=== PATIENT | male | born 1995 | race Caucasian/White ===

== ENCOUNTER → 2021-06-27 12:17 | Outpatient (CLI) | payer OTHER, MEDICAID, SELFPAY ==
[2021-06-27 18:41] LABS: Add Manual Diff / Slide Review NO; Basophils Absolute Auto 100 /uL (0-100); Basophils Percent Auto 0.5 % (0-2); Eosinophils Absolute Auto 600 /uL (0-450); Eosinophils Percent Auto 3.9 % (2-4); Hematocrit 41.6 % (41-53); Hemoglobin 13.8 g/dL (13.5-17.5); Lymphocytes Absolute Auto 2900 /uL (1100-4500); Lymphocytes Percent Auto 18.2 % (25-40); Mean Corpuscular HGB Conc 33.3 % (30-36); Mean Corpuscular Volume 87.1 fL (80-100); Monocytes Absolute Auto 1000 /uL (0-900); Neutrophils Absolute Auto 11600 /uL (1500-7000); Neutrophils Percent Auto 71.4 % (50-75); Platelet Count 348 X10^3/uL (150-400); Red Blood Cell Count 4.77 X10^6/uL (4.5-5.9); Red Cell Distribution Width 13.6 % (11.6-14.8); White Blood Cell Count 16.2 X10^3/uL (4.5-11.0)
[2021-06-27 18:47] LABS: Alanine Aminotransferase 48 IU/L (<50); Albumin 4.4 g/dL (3.5-5.0); Albumin Globulin Ratio 1.3 (1.0-2.8); Alkaline Phosphatase 108 U/L (38-126); Aspartate Aminotransferase 31 IU/L (17-59); BUN Creatinine Ratio 19.2 (6-22); Bilirubin Total 0.2 mg/dL (0.2-1.3); Blood Urea Nitrogen 10 mg/dL (9-20); Calcium 9.3 mg/dL (8.4-10.2); Carbon Dioxide 26 mmol/L (22-32); Chloride 105 mmol/L (98-107); Estimated Glomerular Filt Rate > 60.0 mL/min (>60); Globulin 3.3 g/dL (1.7-4.1); Glucose 121 mg/dL (70-100); HEMOLYSIS < 15 (0-50); Potassium 4.8 mmol/L (3.4-5.1); Sodium 137 mmol/L (137-145); Total Protein 7.7 g/dL (6.3-8.2)
[2021-06-27 19:19] LABS: TSH w/ Reflex to FT4 1.96 uIU/mL (0.47-4.68)
[2021-06-27 19:20] LABS: Testosterone 32.6 ng/dL (132-813)
[2021-07-03 12:18] LABS: Estriol,Serum <0.1 ng/mL (Not Estab.); Estrone,Serum 1728 pg/mL (15-65)
== END ==
PROVIDERS: PCP Physician Assistant; Visit Provider Family Medicine
DX: F64.9 Gender identity disorder, unspecified (principal); G47.00 Insomnia, unspecified; F43.21 Adjustment disorder with depressed mood; R40.0 Somnolence; R06.83 Snoring; K04.7 Periapical abscess without sinus; R05 Cough
CPT/HCPCS: 80053; 82670; 82677; 82679; 84403; 84443; 85025

== ENCOUNTER → 2022-01-27 13:03 | Outpatient (CLI) | payer OTHER, MEDICAID, SELFPAY ==
[2022-01-27 19:07] LABS: Add Manual Diff / Slide Review NO; Basophils Absolute Auto 100 /uL (0-100); Basophils Percent Auto 0.6 % (0-2); Eosinophils Absolute Auto 400 /uL (0-450); Hematocrit 41.5 % (41-53); Hemoglobin 13.9 g/dL (13.5-17.5); Lymphocytes Absolute Auto 2400 /uL (1100-4500); Lymphocytes Percent Auto 23.9 % (25-40); Mean Corpuscular HGB Conc 33.5 % (30-36); Mean Corpuscular Hemoglobin 28.5 PG (26-34); Mean Corpuscular Volume 85.2 fL (80-100); Monocytes Absolute Auto 600 /uL (0-900); Monocytes Percent Auto 6.2 % (3-14); Neutrophils Absolute Auto 6600 /uL (1500-7000); Neutrophils Percent Auto 65.3 % (50-75); Platelet Count 351 X10^3/uL (150-400); Red Blood Cell Count 4.87 X10^6/uL (4.5-5.9); White Blood Cell Count 10.1 X10^3/uL (4.5-11.0)
[2022-01-27 19:11] LABS: Lithium < 0.2 mmol/L (0.6-1.2)
[2022-01-27 19:18] LABS: Alanine Aminotransferase 31 IU/L (<50); Albumin 4.1 g/dL (3.5-5.0); Albumin Globulin Ratio 1.2 (1.0-2.8); Alkaline Phosphatase 81 U/L (38-126); Aspartate Aminotransferase 24 IU/L (17-59); BUN Creatinine Ratio 16.9 (6-22); Bilirubin Total 0.3 mg/dL (0.2-1.3); Blood Urea Nitrogen 13 mg/dL (9-20); Calcium 9.2 mg/dL (8.4-10.2); Carbon Dioxide 24 mmol/L (22-32); Chloride 103 mmol/L (98-107); Estimated Glomerular Filt Rate > 60.0 mL/min (>60); Globulin 3.5 g/dL (1.7-4.1); Glucose 103 mg/dL (70-100); HEMOLYSIS < 15 (0-50); Potassium 4.2 mmol/L (3.4-5.1); Sodium 139 mmol/L (137-145); Total Protein 7.6 g/dL (6.3-8.2)
[2022-01-27 19:47] LABS: Estradiol, Total 31.2 pg/mL
[2022-01-27 19:49] LABS: Testosterone 67.6 ng/dL (132-813)
== END ==
PROVIDERS: PCP Physician Assistant; Visit Provider Physician Assistant
DX: D72.9 Disorder of white blood cells, unspecified (principal); F31.9 Bipolar disorder, unspecified; R79.89 Other specified abnormal findings of blood chemistry
CPT/HCPCS: 80053; 80178; 82670; 84403; 85025

== ENCOUNTER → 2022-02-27 13:25 | Outpatient (CLI) | payer OTHER, MEDICAID, SELFPAY ==
[2022-02-27 18:34] LABS: Lithium 0.6 mmol/L (0.6-1.2)
[2022-02-27 20:15] LABS: Urine N gonorrhoeae NOT DETECTED
[2022-02-27 20:49] LABS: Urine Chlamydia NOT DETECTED
[2022-02-28 06:54] LABS: RPR Screen Non Reactive (Non Reactive)
[2022-02-28 15:36] LABS: HSV I/II IgM <0.91 Ratio (0.00-0.90)
[2022-03-02 16:16] LABS: HIV 1 & 2 Ab/Ag 4th Gen Combo NEGATIVE (NEGATIVE)
== END ==
PROVIDERS: PCP Physician Assistant; Visit Provider Physician Assistant
DX: Z11.3 Encounter for screening for infections with a predominantly sexual mode of transmission (principal); F31.9 Bipolar disorder, unspecified; Z51.81 Encounter for therapeutic drug level monitoring
CPT/HCPCS: 80178; 86592; 86694; 87389; 87491; 87591

== ENCOUNTER → 2022-08-17 14:30 | Outpatient (CLI) | payer OTHER, MEDICAID, SELFPAY ==
[2022-08-17 19:09] LABS: Add Manual Diff / Slide Review NO; Basophils Absolute Auto 100 /uL (0-100); Basophils Percent Auto 0.8 % (0-2); Eosinophils Absolute Auto 400 /uL (0-450); Eosinophils Percent Auto 3.2 % (2-4); Lymphocytes Absolute Auto 2300 /uL (1100-4500); Lymphocytes Percent Auto 18.3 % (25-40); Mean Corpuscular HGB Conc 34.1 % (30-36); Mean Corpuscular Hemoglobin 29.4 PG (26-34); Mean Corpuscular Volume 86.3 fL (80-100); Monocytes Absolute Auto 700 /uL (0-900); Monocytes Percent Auto 5.5 % (3-14); Neutrophils Absolute Auto 9000 /uL (1500-7000); Neutrophils Percent Auto 72.2 % (50-75); Platelet Count 357 X10^3/uL (150-400); Red Blood Cell Count 4.75 X10^6/uL (4.5-5.9); Red Cell Distribution Width 14.4 % (11.6-14.8); White Blood Cell Count 12.5 X10^3/uL (4.5-11.0)
[2022-08-17 19:20] LABS: Lithium 0.5 mmol/L (0.6-1.2)
[2022-08-17 19:52] LABS: TSH w/ Reflex to FT4 1.47 uIU/mL (0.47-4.68)
[2022-08-17 20:14] LABS: Alanine Aminotransferase 33 IU/L (<50); Albumin 4.3 g/dL (3.5-5.0); Albumin Globulin Ratio 1.2 (1.0-2.8); Alkaline Phosphatase 76 U/L (38-126); Aspartate Aminotransferase 24 IU/L (17-59); BUN Creatinine Ratio 15.7 (6-22); Bilirubin Total 0.8 mg/dL (0.2-1.3); Blood Urea Nitrogen 13 mg/dL (9-20); Calcium 9.2 mg/dL (8.4-10.2); Carbon Dioxide 23 mmol/L (22-32); Chloride 104 mmol/L (98-107); Estimated Glomerular Filt Rate > 60 mL/min (>60); Globulin 3.5 g/dL (1.7-4.1); Glucose 99 mg/dL (70-100); HEMOLYSIS < 15 (0-50); Potassium 4.4 mmol/L (3.4-5.1); Sodium 138 mmol/L (137-145); Total Protein 7.8 g/dL (6.3-8.2)
[2022-08-22 19:07] LABS: Estrogen 379 pg/mL (56-213)
[2022-08-26 08:12] LABS: Percent Free Testosterone 3.95 % (1.50-4.20); Testosterone Free 3.93 ng/dL (5.00-21.00); Testosterone Total 99.6 ng/dL (264.0-916.0)
== END ==
PROVIDERS: PCP Physician Assistant; Visit Provider Physician Assistant
DX: F31.9 Bipolar disorder, unspecified (principal); F64.9 Gender identity disorder, unspecified; R55 Syncope and collapse
CPT/HCPCS: 80053; 80178; 82672; 84402; 84403; 84443; 85025

== ENCOUNTER → 2022-09-09 10:56 | Outpatient (CLI) | payer OTHER, MEDICAID, SELFPAY ==
[2022-09-09 19:38] LABS: Cholesterol 165 mg/dL (140-199); HDL Cholesterol 36 mg/dL (40-60); LDL Cholesterol Calculated 103 mg/dL (<100); Triglycerides 132 mg/dL (35-150)
[2022-09-16 12:51] LABS: Estrogen 117 pg/mL (56-213)
[2022-09-18 15:50] LABS: Percent Free Testosterone 4.46 % (1.50-4.20); Testosterone Free 18.38 ng/dL (5.00-21.00)
== END ==
PROVIDERS: PCP Physician Assistant; Visit Provider Physician Assistant
DX: F64.9 Gender identity disorder, unspecified (principal); Z78.9 Other specified health status
CPT/HCPCS: 80061; 82672; 84402; 84403

== ENCOUNTER → 2024-06-01 10:29 | Outpatient (CLI) | payer OTHER, MEDICAID, SELFPAY ==
[2024-06-01 19:52] LABS: Add Manual Diff / Slide Review NO; Basophils Absolute Auto 100 /uL (0-100); Basophils Percent Auto 0.6 % (0-2); Eosinophils Absolute Auto 400 /uL (0-450); Eosinophils Percent Auto 4.2 % (2-4); Hemoglobin 15.1 g/dL (13.5-17.5); Lymphocytes Absolute Auto 2900 /uL (1100-4500); Lymphocytes Percent Auto 31.1 % (25-40); Mean Corpuscular HGB Conc 33.6 % (30-36); Mean Corpuscular Hemoglobin 29.2 PG (26-34); Mean Corpuscular Volume 86.9 fL (80-100); Monocytes Absolute Auto 700 /uL (0-900); Monocytes Percent Auto 7.7 % (3-14); Neutrophils Absolute Auto 5200 /uL (1500-7000); Neutrophils Percent Auto 56.4 % (50-75); Platelet Count 254 X10^3/uL (150-400); Red Blood Cell Count 5.18 X10^6/uL (4.5-5.9); Red Cell Distribution Width 13.7 % (11.6-14.8); White Blood Cell Count 9.3 X10^3/uL (4.5-11.0)
[2024-06-01 20:01] LABS: Alanine Aminotransferase 85 IU/L (<50); Albumin 4.2 g/dL (3.5-5.0); Albumin Globulin Ratio 1.4 (1.0-2.8); Alkaline Phosphatase 106 U/L (38-126); Aspartate Aminotransferase 48 IU/L (17-59); Bilirubin Total 0.5 mg/dL (0.2-1.3); Blood Urea Nitrogen 12 mg/dL (9-20); Calcium 9.1 mg/dL (8.4-10.2); Carbon Dioxide 25 mmol/L (22-32); Chloride 106 mmol/L (98-107); Cholesterol 138 mg/dL (140-199); Estimated Glomerular Filt Rate > 60 mL/min (>60); Globulin 2.9 g/dL (1.7-4.1); Glucose 109 mg/dL (70-100); HDL Cholesterol 63 mg/dL (40-60); HEMOLYSIS 20 (0-50); LDL Cholesterol Calculated 65 mg/dL (<100); Potassium 4.6 mmol/L (3.4-5.1); Sodium 137 mmol/L (137-145); Total Protein 7.1 g/dL (6.3-8.2); Triglycerides 51 mg/dL (35-150)
[2024-06-01 20:24] LABS: TSH w/ Reflex to FT4 < 0.02 uIU/mL (0.47-4.68)
[2024-06-01 20:29] LABS: Prostate Specific Antigen Scrn 0.383 ng/mL (0.1-4.0)
[2024-06-01 20:59] LABS: Free T4, Direct Thyroxine 1.68 ng/dL (0.78-2.19); Hep C Virus Ab w/Reflex Quant NEGATIVE s/c (NEGATIVE)
[2024-06-08 08:10] LABS: Testosterone Free 12.28 ng/dL (5.00-21.00); Testosterone Total 438.5 ng/dL (264.0-916.0)
[2024-06-09 20:36] LABS: Estrogen 127 pg/mL (56-213)
== END ==
PROVIDERS: PCP Physician Assistant; Visit Provider Physician Assistant
DX: Z78.9 Other specified health status (principal); F31.9 Bipolar disorder, unspecified; Z13.6 Encounter for screening for cardiovascular disorders; Z11.59 Encounter for screening for other viral diseases; Z79.899 Other long term (current) drug therapy; Z12.5 Encounter for screening for malignant neoplasm of prostate
CPT/HCPCS: 80053; 80061; 82672; 84402; 84403; 84439; 84443; 85025; 86803; G0103